=== PATIENT | female | born 1955 | race Caucasian/White ===

== ENCOUNTER 2023-05-18 13:48 | Outpatient (CLI) | payer MEDICARE, MEDICAID, SELFPAY ==
--- NOTE | ~2023-05-18 | DEXA_ITS ---
Bone Density Report Name: VIVEK MAYFIELD Age: 67 Sex: Female Ethnicity: White Date of : 1955 Indication: postmenopausal; screening for osteoporosis; height loss; Referring Provider: JORGE, FABIANO El Study: Bone densitometry was performed. Exam Date: May 18, 2023 Accession number: [id number] Bone Density: Region BMD T-score Z-score Classification AP Spine(L1-L4) 0.841 -1.9 -0.1 Osteopenia Femoral Neck (Left) 0.503 -3.1 -1.6 Osteoporosis Total Hip (Left) 0.691 -2.1 -0.8 Osteopenia Femoral Neck (Right) 0.462 -3.5 -1.9 Osteoporosis Total Hip (Right) 0.584 -2.9 -1.7 Osteoporosis Femoral Neck Mean 0.483 -3.3 -1.8 Osteoporosis Total Hip Mean 0.638 -2.5 -1.2 Osteoporosis World Health Organization criteria for BMD impression classify patients as: Normal (T-score at or above -1.0), Osteopenia (T-score between -1.0 and -2.5), or Osteoporosis (T-score at or below -2.5). 10-year Fracture Risk: FRAX not reported because: Some T-score for Spine Total or Hip Total or Femoral Neck at or below -2.5 Clinical Information Provided by Patient: Has used the following medications: Vitamin D, Calcium Patient maximum height was 63.0 Menopause Age: 45 No regular weight bearing exercise Drinks caffeinated beverages Onset of menses at age 18 Number of children 6 Impression: The patient has osteoporosis, based on the Right Femoral Neck T-score. Discussion: INCREASED RISK OF FRACTURE. BONE DENSITY IS UNDESIRABLY LOW AT ONE OR MORE SKELETAL SITES, CONSISTENT WITH POSTMENOPAUSAL OSTEOPOROSIS. This patient's lowest T-score meets the World Health Organization's (WHO) criteria for osteoporosis at one or more sites (T-score -2.5 or below). In untreated patients, the risk of osteoporotic fracture increases approximately two-fold for each 1.0 SD decrease in T-score. Low bone density is not the only risk factor for fracture; also consider factors such as patient's age, frailty or poor health, risk of falling, risk of injury, previous osteoporotic fracture, family history of osteoporosis, cigarette smoking, low body weight, etc. Not everyone with low bone mineral density has osteoporosis; osteomalacia and other metabolic bone disorders should also be considered. Patients who have osteoporosis should be evaluated for specific diseases and conditions (secondary causes) that may cause or contribute to bone loss. The [place] [employer] (AACE) and National Osteoporosis Foundation (NOF) recommend pharmacologic intervention for all postmenopausal women whose T-score is in this range. The patient should follow a healthful lifestyle (good nutrition with adequate calcium and vitamin D, and appropriate weight-bearing exercise). Follow-Up: Consider a repeat BMD and Vertebral Fracture Assessment (VFA) exam in 2 years or sooner if medically necessary, to reassess this patient'
== END 2023-05-18 13:49 | disposition home or self-care (01) ==
LOC: CHSIMG 13:51
PROVIDERS: PCP Nurse Practitioner Family; Visit Provider Nurse Practitioner Family
DX: Z78.0 Asymptomatic menopausal state (principal); M81.0 Age-related osteoporosis without current pathological fracture; M85.89 Other specified disorders of bone density and structure, multiple sites
CPT/HCPCS: 77080

== ENCOUNTER 2023-05-29 10:30 | Outpatient (CLI) | payer MEDICARE, MEDICAID, SELFPAY ==
--- NOTE | ~2023-05-29 | US_ITS ---
EXAMINATION: US aorta [facility] DATE: 05/29/2023 11:33 INDICATION: Personal history of nicotine dependence, abdominal aortic aneurysm screening TECHNIQUE: Grayscale, color Doppler, and pulsed Doppler images of the aorta and common iliac arteries were obtained. COMPARISON: None. FINDINGS: Maximum vascular dimensions are as follows: Proximal aorta: 2.4 cm Mid aorta: 1.9 cm Distal aorta: 1.7 cm Right common iliac artery: 1.0 cm Left common iliac artery: 1.0 cm There is no evidence of abdominal aortic aneurysm. IMPRESSION: 1. No sonographically detected abdominal aortic aneurysm. Reviewed, dictated and finalized at location B. E IN TELLER
== END 2023-05-29 10:31 | disposition home or self-care (01) ==
PROVIDERS: PCP Nurse Practitioner Family; Visit Provider Internal Medicine Cardiovascular Disease
DX: Z87.891 Personal history of nicotine dependence (principal)
CPT/HCPCS: 76706

== ENCOUNTER 2023-10-02 12:21 | Outpatient (CLI) | payer MEDICARE, MEDICAID, SELFPAY ==
--- NOTE | ~2023-10-02 | CT_ITS ---
CT Scan of the Chest without Contrast: Clinical Indication: Lung cancer screening, nicotine dependence Technique: Contiguous sections were acquired throughout the chest without intravenous contrast. Dose reduction technique was used on this scan by utilizing automated exposure control and iterative recon struction technique. The dose-length product (DLP) was 81.58 mGy-cm. COMPARISON: 08/25/2018 Findings: There is no evidence of any significant mediastinal, hilar or axillary lymphadenopathy. There are ath erosclerotic calcifications of the aorta and coronary arteries. There is no evidence of pleural or pericardial effusion. There is a 3.0 x 1.8 cm spiculated pulmonary nodule or masslike consolidation at the right lung base (axial image 78). There is moderate to advanced emphysema with bibasilar chronic interstitial change. Images through the upper abdomen reveal no abnormalities. Compression fractures of T6, T7, T10 are st able from prior exam. There are new compression fractures since 2019 involving T12, L1, L2, which are likely chronic however. Impression: Lung RADS 4B: Very suspicious. 3.0 x 1.8 cm spiculated pulmonary nodule the right lung base. Tissue s ampling recommended to establish histologic diagnosis, as this is highly suspicious for malignancy. Multiple spinal compression fractures, as detailed above. Advanced emphysema with bibasilar chronic interstitial change. Reviewed, dictated and finalized at location M. Impression: Lung RADS 4B: Very suspicious. 3.0 x 1.8 cm spiculated pulmonary nodule the rig ht lung base. Tissue sampling recommended to establish histologic diagnosis, as this is highly suspicious for malignancy. Multiple spinal compression fractures, as detailed above. Advanced emphysema with bibasilar chronic interstitial change.
== END 2023-10-02 12:22 | disposition home or self-care (01) ==
LOC: CHSIMG 12:22
PROVIDERS: PCP Nurse Practitioner Family
DX: Z12.2 Encounter for screening for malignant neoplasm of respiratory organs (principal); Z87.891 Personal history of nicotine dependence; R92.8 Other abnormal and inconclusive findings on diagnostic imaging of breast; M48.54XA Collapsed vertebra, not elsewhere classified, thoracic region, initial encounter for fracture; J43.9 Emphysema, unspecified
CPT/HCPCS: 71271